=== PATIENT | female | born 1940 | race Caucasian/White ===

== ENCOUNTER 2017-01-18 19:11 | Inpatient (IN) | payer BC, SELFPAY ==
--- NOTE | ~2017-01-18 | DS ---
Discharge Summary [facility] [address] [place]. [address] NAME: JOAQUIN ALVAREZ : 36 STATUS : DIS IN PAT#: [id number] AGE: 76 ADM/REG DATE : 01/18/17 MR#: [id number] REPORT SERV DATE: 01/26/17 DICTATED BY: VIOLETA CASTILLO DATE: 01/25/17 REPORT STATUS : Draft TRANSCRIBED BY: JULIA DATE: 01/25/17 ADMISSION DATE: 01/18/2017 DISCHARGE DATE: 01/25/2017 CONSULTATION: None. PROCEDURES: None. DISCHARGE DIAGNOSES: 1. Pneumonia. 2. Dementia. 3. Hypothyroidism. 4. Hypertension. 5. Physical deconditioning. 6. Obstructive sleep apnea, on CPAP. 7. Gastroesophageal reflux disease. HISTORY OF PRESENT ILLNESS: This is a 76-year-old female with history of multiple admissions for urinary tract infection, hypertension, hypothyroidism, who presented to the emergency room with acute confusional state. In the ER, she was found to have significant WBC count of 14.7. Chest x-ray was concerning for left lower lobe pneumonia. The patient was admitted to the hospital for management of left lower lobe pneumonia. HOSPITAL COURSE: 1. Health care-associated pneumonia. Given the patient's constellation of presentation of symptoms of elevated WBC count, chest x-ray with consolidation and recent hospitalization, the patient was started on broad-spectrum IV antibiotics for HCAP. The patient's white blood cell continued to trend down. During the course of this admission, sputum culture and blood cultures yielded no growth. The patient was transitioned to p.o. antibiotics prior to discharge. The patient completed a total of ten days of antibiotics. At the time of discharge, the patient's cough, shortness of breath, and oxygenation have just turned back to baseline. The patient was advised to continue follow up with primary care physician. 2. Dementia. The patient has history of advanced dementia. The patient was pleasantly demented throughout the course of this admission. At the time of discharge, the patient was discharged back to SNF at [facility]. IMAGING: CT scan of the brain. Impression, stable generalized atrophy. DISCHARGE MEDICATIONS: 1. Folic acid 1 mg p.o. daily. 2. Levothyroxine 112 mcg p.o. daily. 3. Lisinopril 10 mg p.o. daily. 4. Namenda 10 mg p.o. b.i.d. 5. Omeprazole 40 mg p.o. daily. Discharge Summary [facility] [address] [place]. [address] NAME: JOAQUIN ALVAREZ : 38 STATUS : DIS IN PAT#: [id number] AGE: 76 ADM/REG DATE : 01/18/17 MR#: [id number] REPORT SERV DATE: 01/26/17 DICTATED BY: VIOLETA CASTILLO DATE: 01/25/17 REPORT STATUS : Draft TRANSCRIBED BY: JULIA DATE: 01/25/17 DISCHARGE ACTIVITY: As tolerated. DISCHARGE DIET: Low-salt diet. DISCHARGE DISPOSITION: To SNF at [facility]. A total of 35 minutes was used to prepare this patient's discharge, reconcile medication, and advised the patient on discharge followup. SUSIO/JULIA Violeta Castillo MD / [id number] CC: Violeta Castillo MD [facility]
--- NOTE | ~2017-01-18 | HP ---
History And Physical [facility] [address] [place]. [address] NAME: JOAQUIN ALVAREZ : 38 STATUS : ADM IN PAT#: [id number] AGE: 76 ADM/REG DATE : 01/18/17 MR#: [id number] REPORT SERV DATE: 01/19/17 DICTATED BY: ERIKA CAO DATE: 01/18/17 REPORT STATUS : Draft TRANSCRIBED BY: MODL DATE: 01/18/17 DATE OF ADMISSION: 01/18/2017 CHIEF COMPLAINT: Mental status changes, acute encephalopathy with lethargy and nausea and vomiting. HPI: The patient is a 76-year-old female with multiple admissions for urinary infection, chronic encephalopathy, hypertension, hypothyroidism, recent diarrhea accompanied by family members as the patient has had continuous mental status changes, generalized weakness that has been constant, moderate severity. No pain or radiating symptoms. Has had mild nausea, vomiting, multiple diarrhea episodes today with weakness. No worsening symptoms or no relieving symptoms, and are still currently present. The patient has had minimal urine output and decreased p.o. intake. Did have episode of being sweaty and dizziness earlier. REVIEW OF SYSTEMS: The patient does not quite respond to complete review of systems, but family members who are in healthcare field unable to provide majority of the ROS. For consultation, the patient has had weakness with dizziness. Eyes, no reported pain or visual changes. ENT has had right ear pain with dizziness. No congestion. Neuro, no headache, mild confusion. Skin, no rashes or bruising. Respiratory, no shortness of breath but does have had recurrent cough. CV, no chest pain or palpitations. GI positive for nausea, vomiting, and multiple episodes of diarrhea, but no abdominal pain. has had decreased urine output. No hematuria. Musculoskeletal, no myalgias, arthralgias above baseline. Endo, does have fatigue. No polyuria. Heme, no bleeding or bruising. Immunologic, no rhinorrhea. Psych, no anxiety but does have increased confusion. PAST MEDICAL HISTORY: Noted for chronic encephalopathy with chronic advanced dementia, recurrent urinary infections. Hypertension, GERD, hypothyroidism, BILL noncompliant with CPAP per records. SURGICAL HISTORY: Bladder tack. SOCIAL HISTORY: No smoking, alcohol, has been at rehab facility recently. FAMILY HISTORY: Noted for cancer. ALLERGIES: PENICILLIN, AZITHROMYCIN, DURICEF, DETROL. HOME MEDICATIONS: Fosamax, Norvasc, aspirin, Lipitor, vitamin D 1000 units, vitamin B 12, Aricept, Lexapro, folic acid, levothyroxine, Prinivil, melatonin, Namenda, Myrbetriq, fish oil, Prilosec, barrier cream, and Levaquin. EKG: Noted for sinus tach with occasional PVCs rate of 118 QTc 465. PHYSICAL EXAMINATION: History And Physical [address] [address] NAME: JOAQUIN ALVAREZ : 38 STATUS : ADM IN PAT#: [id number] AGE: 76 ADM/REG DATE : 01/18/17 MR#: [id number] REPORT SERV DATE: 01/19/17 DICTATED BY: ERIKA CAO DATE: 01/18/17 REPORT STATUS : Draft TRANSCRIBED BY: JULIA DATE: 01/18/17 VITAL SIGNS: The patient's blood pressure 137/64, temperature 98.8, pulse 78, respirations 20, O2 sat is 88% on room air improved to 92% on 2 L. GENERAL: Frail, but no acute distress. Lethargic, awakens and responsive to verbal stimulation. HEENT: Eyes, no scleral icterus, but pale. ENT, dry mucous membranes. Tongue midline. Does have cerumen impaction, right side greater than left. RESPIRATORY: Clear to auscultation. No dullness to percussion in the anterior and posterior lung lambert. CHEST: No increased AP diameter. CV: Mildly tachycardic with no rubs or gallops. GI: Soft, nontender, and nondistended. Bowel sounds positive. : Deferred. MUSCULOSKELETAL: Moves all extremities x4, but generalized weak due to underlying lethargy. SKIN: Warm, dry, thin skin, slight tenting. LYMPHS: No cervical or supraclavicular lymphadenopathy. HEMET: No bleeding or bruising. Neuro: Lethargic but alert to person, place, does have symmetrical strength, approximately 4/5 in upper and lower lambert. PSYCH: Tired, but appropriate mood, and calm. LABS: Brain without contrast, stable generalized atrophy. CMP; sodium 143, potassium 3.8, chloride 106, bicarb 29, BUN and creatinine 14 and 1.25, glucose 97, total protein 6.5. LFTs within normal limits with a lipase of 175. Drug screen negative. CBC; WBC count 14.8. Family reports it was up to 25 at that facility. H and H 13.2 and 39.7, platelets 221,000. ABG pH 7.39, pCO2 42, PO2 63, bicarb 24.5. Chest x-ray concerning for left lower lobe pneumonia. Official report still pending. ASSESSMENT/PLAN: 1. Left lower lobe pneumonia with health care-associated pneumonia risk factors. 2. Mzgxv-wr-cdksulj encephalopathy. 3. Hypertension. 4. Hypothyroidism. 5. Diarrhea. 6. Acute hypoxia. 7. Obstructive sleep apnea, noncompliant with CPAP. PLAN: 1. Left lower lobe pneumonia with HCAP risk factors. Has recently been on Levaquin. WBC count has gone from 25,000 to 14,000, but still having increased shortness of breath, cough, and hypoxia. We will broaden to vanc and aztreonam, based off allergies and HCAP risk factors. Cultures ordered and pending. Deescalate as tolerated. Continue monitor supportively. 2. Htjuv-or-hgxxvjl encephalopathy, treat #1. The patient has minimal urine output even with [place], unable to test if there is any active urine infection at this time. 3. Hypertension, on ERROL inhibitor. 4. Hypothyroidism, questionable compliance with replacement. 5. Diarrhea. Check C. diff with multiple bowel movements. Has recently been on History And Physical [address] [address] NAME: JOAQUIN ALVAREZ : 36 STATUS : ADM IN [facility]#: [id number] AGE: 76 ADM/REG DATE : 01/18/17 MR#: [id number] REPORT SERV DATE: 01/19/17 DICTATED BY: ERIKA CAO DATE: 01/18/17 REPORT STATUS : Draft TRANSCRIBED BY: MODKieran DATE: 01/18/17 levothyroxine. 6. Acute hypoxia, improved with O2. 7. Obstructive sleep apnea. 8. Noncompliant with CPAP history. We will need to monitor with O2 overnight. All questions answered to the patient and family. Anticipate greater than two midnight inpatient stay. ANTONN/JULIA Erika Cao MD / [id number] CC: MD Darius Shine P.A.-C
[~2017-01-18 19:11] MED LIST: ARICEPT10 PO; ASAB PO; B-12; B12100T PO; BARRIER CREAM TOP; BLINK TEARS OPH; CENTRUM PO; CHLORTABS PO; CLARIT10 PO; CRAN CONC500 MG PO; CYANO1000T PO; DESITIN TOP; DIOV160 PO; DITRO5 PO; FISH OIL1200 MG; FISH OIL1200 MG PO; FLONASE NAS; FOLIC ACID400 MC1 PO; FOLIC PO; FOSAMAX + D1 TAB; FOSAMAX70 MG PO; HALF81 PO; IMOD PO; LEVAQUIN750 MG PO; LEVOTHYROXIN125 MCG PO; LEXAPRO20 PO; LIPITOR20 PO; MACROBID PO; MELA3 PO; MELATONIN10 M2 PO; MELATONIN5 M1 PO; MULTI-VIT HP PO; MULTIVIT/MIN PO; MYRBETRIQ25 MG PO; NAMENDA10 MG PO; NAMENXR28; NATURE'S OPH; NORV25 PO; NORV5 PO; PRILOSEC40 MG PO; PRIN10 PO; PROVENTSOL INH; SYN075 PO; SYN1 PO; SYN125 PO; TESS PO; VITAMIN D1000 UNI1 PO; VITAMIN D31000 UNIT PO; Z-PAK PO; ZANTAC 150 PO; ZESTRIL10 MG PO
[2017-01-18 20:03] LABS: BE (BASE EXCESS) -0.5 MEQ/L (0 +/- 2.5); CARBOXYHEMOGLOBIN 1.2 % (0-3); HCO3 (ACTUAL BICARBONATE) 24.5 MEQ/L (23-27); HEMOBLOGIN CONTENT 13.5 G/DL (12-16); INSTRUMENT SERIAL # 8087; METHEMOGLOBIN 0.4 % (0-3); O2 CONTENT 17.3 VOL% (18-24); PCO2 (CO2 TENSION) 42 MMHG (35-45); PO2 (O2 TENSION) 63 MMHG (79-93); pH 7.39 (7.37-7.43)
[2017-01-18 20:04] LABS: ALLENS TEST Pos; DEVICE NC; OPERATOR ID 17589; SAMPLE Arterial
[2017-01-18 20:22] LABS: BASOPHILS 0.2 %; BASOPHILS ABSOLUTE 0.03 10/3/uL (0.0-0.16); EOSINOPHILS 0.1 %; EOSINOPHILS ABSOLUTE 0.01 10/3/uL (0.0-0.53); HEMOGLOBIN 13.2 g/dL (12.0-16.0); LYMPHOCYTES 2.3 %; LYMPHOCYTES ABSOLUTE 0.34 10/3/uL (0.67-4.30); MEAN CORPUS HGB CONC 33.2 g/dL (32.0-36.0); MEAN CORPUSCULAR HEMOGLOB 30.8 pg (26.0-34.0); MEAN CORPUSCULAR VOLUME 92.5 fL (80-100); MEAN PLATELET VOLUME 9.4 fL (9.2-13.0); MONOCYTES 5.6 %; MONOCYTES ABSOLUTE 0.83 10/3/uL (0.21-1.20); NEUTROPHILS 89.8 %; PLATELET COUNT 221 10/3/uL (150-400); RBC DISTRIBUTION WIDTH 12.3 % (12.0-16.0); RED CELL COUNT 4.29 10/6/uL (4.0-5.6)
[2017-01-18 20:28] LABS: ER CBC TAT 0 Hrs 12 Mins; HEMATOCRIT 39.7 % (36.0-48.0); MANUAL DIFF NO %; WHITE BLOOD CELLS 14.8 10/3/uL (4.5-10.5)
[2017-01-18 20:36] LABS: A/G RATIO 0.8 (0.7-1.9); ALBUMIN 2.9 G/DL (3.5-5.0); ALKALINE PHOSPHATASE 68 U/L (45-117); BUN (BLOOD UREA NITROGEN) 14 MG/DL (6-23); CALCIUM, SERUM 8.6 MG/DL (8.5-10.4); CHLORIDE, SERUM 106 MMOL/L (96-112); CO2 (CARBON DIOXIDE) 29 MMOL/L (24-34); CREATININE 1.25 MG/DL (0.55-1.02); GFR AFRICAN AMERICAN 48 ML/MIN (>=60); GFR NON AFRICAN AMERICAN 41 ML/MIN (>=60); GLOBULIN 3.6 G/DL (2.5-4.1); GLUCOSE, SERUM 97 MG/DL (60-99); POTASSIUM, SERUM 3.8 MMOL/L (3.5-5.3); SGOT(AST) 13 U/L (5-40); SGPT(ALT) 18 U/L (5-65); SODIUM, SERUM 143 MMOL/L (135-148); TOTAL PROTEIN 6.5 G/DL (6.0-8.5)
[2017-01-18 20:38] LABS: ACETAMINOPHEN LEVEL (TYLENOL) < 2.0 MCG/ML (10.0-20.0); ALCOHOL < 10 MG/DL (0); SALICYLATE < 1.7 MG/DL (-); TOTAL BILIRUBIN 0.7 MG/DL (0-1.2)
[2017-01-18] MEDS ORDERED: CIP5 PO (21:33)
[2017-01-19 05:15] LABS: ASCORBIC ACID (UR NOT ORDER) NEG (NEG); BILIRUBIN, URINE SMALL (NEG); KETONE, URINE NEGATIVE (NEG); LEUKOCYTE ESTERASE(NOT OR TRACE (NEG); WBC (NOT ORDERED) (RFLEX) 5 (0-5)
[2017-01-19 05:51] LABS: TROPONIN I <0.02 NG/ML (<0.05)
[2017-01-19 06:37] LABS: PROCALCITONIN 33.66 ng/mL (<0.5)
[2017-01-20 05:06] LABS: BASOPHILS 0.2 %; BASOPHILS ABSOLUTE 0.02 10/3/uL (0.0-0.16); EOSINOPHILS 0.2 %; EOSINOPHILS ABSOLUTE 0.02 10/3/uL (0.0-0.53); IMMATURE GRANULOCYTES 0.8 %; IMMATURE GRANULOCYTES ABSOLUTE 0.11 10/3/uL (0.0-0.11); LYMPHOCYTES 11.8 %; LYMPHOCYTES ABSOLUTE 1.53 10/3/uL (0.67-4.30); MEAN CORPUS HGB CONC 32.9 g/dL (32.0-36.0); MEAN CORPUSCULAR VOLUME 94.3 fL (80-100); MEAN PLATELET VOLUME 9.5 fL (9.2-13.0); MONOCYTES 7.2 %; MONOCYTES ABSOLUTE 0.93 10/3/uL (0.21-1.20); NEUTROPHILS 79.8 %; NEUTROPHILS ABSOLUTE 10.34 10/3/uL (2.02-8.40); PLATELET COUNT 183 10/3/uL (150-400); RBC DISTRIBUTION WIDTH 12.7 % (12.0-16.0)
[2017-01-20 05:07] LABS: HEMATOCRIT 28.3 % (36.0-48.0); HEMOGLOBIN 9.3 g/dL (12.0-16.0); MANUAL DIFF NO %
[2017-01-20 05:11] LABS: BUN (BLOOD UREA NITROGEN) 17 MG/DL (6-23); CALCIUM, SERUM 7.8 MG/DL (8.5-10.4); CHLORIDE, SERUM 113 MMOL/L (96-112); CO2 (CARBON DIOXIDE) 27 MMOL/L (24-34); CREATININE 0.91 MG/DL (0.55-1.02); GFR AFRICAN AMERICAN 70 ML/MIN (>=60); GFR NON AFRICAN AMERICAN 60 ML/MIN (>=60); GLUCOSE, SERUM 95 MG/DL (60-99); POTASSIUM, SERUM 3.9 MMOL/L (3.5-5.3); SGOT(AST) 11 U/L (5-40); SGPT(ALT) 10 U/L (5-65); SODIUM, SERUM 146 MMOL/L (135-148); TOTAL BILIRUBIN 0.4 MG/DL (0-1.2)
[2017-01-20 05:13] LABS: A/G RATIO 0.7 (0.7-1.9); ALKALINE PHOSPHATASE 51 U/L (45-117)
[2017-01-21 07:35] LABS: BASOPHILS 0.3 %; BASOPHILS ABSOLUTE 0.03 10/3/uL (0.0-0.16); EOSINOPHILS 0.1 %; EOSINOPHILS ABSOLUTE 0.01 10/3/uL (0.0-0.53); HEMOGLOBIN 10.6 g/dL (12.0-16.0); IMMATURE GRANULOCYTES ABSOLUTE 0.09 10/3/uL (0.0-0.11); LYMPHOCYTES 13.3 %; LYMPHOCYTES ABSOLUTE 1.16 10/3/uL (0.67-4.30); MEAN CORPUS HGB CONC 33.5 g/dL (32.0-36.0); MEAN CORPUSCULAR VOLUME 92.4 fL (80-100); MEAN PLATELET VOLUME 9.4 fL (9.2-13.0); MONOCYTES 8.7 %; MONOCYTES ABSOLUTE 0.76 10/3/uL (0.21-1.20); NEUTROPHILS 76.6 %; NEUTROPHILS ABSOLUTE 6.68 10/3/uL (2.02-8.40); PLATELET COUNT 201 10/3/uL (150-400); RBC DISTRIBUTION WIDTH 12.4 % (12.0-16.0); RED CELL COUNT 3.42 10/6/uL (4.0-5.6); WHITE BLOOD CELLS 8.7 10/3/uL (4.5-10.5)
[2017-01-21 07:43] LABS: HEMATOCRIT 31.6 % (36.0-48.0); MANUAL DIFF NO %
[2017-01-21 07:49] LABS: A/G RATIO 0.6 (0.7-1.9); ALBUMIN 2.2 G/DL (3.5-5.0); ALKALINE PHOSPHATASE 59 U/L (45-117); CALCIUM, SERUM 8.6 MG/DL (8.5-10.4); CHLORIDE, SERUM 109 MMOL/L (96-112); CO2 (CARBON DIOXIDE) 28 MMOL/L (24-34); CREATININE 0.68 MG/DL (0.55-1.02); GFR AFRICAN AMERICAN 97 ML/MIN (>=60); GFR NON AFRICAN AMERICAN 84 ML/MIN (>=60); GLOBULIN 3.5 G/DL (2.5-4.1); GLUCOSE, SERUM 79 MG/DL (60-99); POTASSIUM, SERUM 4.2 MMOL/L (3.5-5.3); SGOT(AST) 11 U/L (5-40); SGPT(ALT) 12 U/L (5-65); SODIUM, SERUM 144 MMOL/L (135-148); TOTAL BILIRUBIN 0.6 MG/DL (0-1.2); TOTAL PROTEIN 5.7 G/DL (6.0-8.5)
[2017-01-21 07:51] LABS: BUN (BLOOD UREA NITROGEN) 11 MG/DL (6-23)
[2017-01-22 07:49] LABS: BASOPHILS 0.6 %; BASOPHILS ABSOLUTE 0.06 10/3/uL (0.0-0.16); EOSINOPHILS 0.1 %; EOSINOPHILS ABSOLUTE 0.01 10/3/uL (0.0-0.53); HEMOGLOBIN 12.3 g/dL (12.0-16.0); IMMATURE GRANULOCYTES 2.1 %; LYMPHOCYTES 14.2 %; LYMPHOCYTES ABSOLUTE 1.34 10/3/uL (0.67-4.30); MEAN CORPUSCULAR HEMOGLOB 30.6 pg (26.0-34.0); MEAN PLATELET VOLUME 9.2 fL (9.2-13.0); MONOCYTES 7.3 %; MONOCYTES ABSOLUTE 0.69 10/3/uL (0.21-1.20); NEUTROPHILS 75.7 %; NEUTROPHILS ABSOLUTE 7.14 10/3/uL (2.02-8.40); PLATELET COUNT 229 10/3/uL (150-400); RED CELL COUNT 4.02 10/6/uL (4.0-5.6); WHITE BLOOD CELLS 9.4 10/3/uL (4.5-10.5)
[2017-01-22 07:50] LABS: HEMATOCRIT 36.2 % (36.0-48.0)
[2017-01-22 07:51] LABS: MANUAL DIFF NO %
[2017-01-22 08:05] LABS: A/G RATIO 0.7 (0.7-1.9); ALBUMIN 2.6 G/DL (3.5-5.0); ALKALINE PHOSPHATASE 70 U/L (45-117); BUN (BLOOD UREA NITROGEN) 8 MG/DL (6-23); CHLORIDE, SERUM 108 MMOL/L (96-112); CO2 (CARBON DIOXIDE) 27 MMOL/L (24-34); GFR AFRICAN AMERICAN 101 ML/MIN (>=60); GFR NON AFRICAN AMERICAN 87 ML/MIN (>=60); GLOBULIN 3.9 G/DL (2.5-4.1); GLUCOSE, SERUM 86 MG/DL (60-99); POTASSIUM, SERUM 3.6 MMOL/L (3.5-5.3); SGOT(AST) 19 U/L (5-40); SGPT(ALT) 12 U/L (5-65); SODIUM, SERUM 142 MMOL/L (135-148); TOTAL BILIRUBIN 0.5 MG/DL (0-1.2); TOTAL PROTEIN 6.5 G/DL (6.0-8.5)
[2017-01-23 05:03] LABS: BASOPHILS 1.1 %; BASOPHILS ABSOLUTE 0.11 10/3/uL (0.0-0.16); EOSINOPHILS 0.1 %; EOSINOPHILS ABSOLUTE 0.01 10/3/uL (0.0-0.53); HEMOGLOBIN 11.9 g/dL (12.0-16.0); IMMATURE GRANULOCYTES 2.4 %; IMMATURE GRANULOCYTES ABSOLUTE 0.25 10/3/uL (0.0-0.11); LYMPHOCYTES 14.5 %; LYMPHOCYTES ABSOLUTE 1.49 10/3/uL (0.67-4.30); MEAN CORPUSCULAR HEMOGLOB 30.4 pg (26.0-34.0); MEAN CORPUSCULAR VOLUME 89.3 fL (80-100); MEAN PLATELET VOLUME 9.4 fL (9.2-13.0); MONOCYTES 7.4 %; MONOCYTES ABSOLUTE 0.76 10/3/uL (0.21-1.20); NEUTROPHILS 74.5 %; NEUTROPHILS ABSOLUTE 7.66 10/3/uL (2.02-8.40); PLATELET COUNT 233 10/3/uL (150-400); RBC DISTRIBUTION WIDTH 12.5 % (12.0-16.0); RED CELL COUNT 3.92 10/6/uL (4.0-5.6); WHITE BLOOD CELLS 10.3 10/3/uL (4.5-10.5)
[2017-01-23 05:04] LABS: MANUAL DIFF NO %
[2017-01-23 05:20] LABS: A/G RATIO 0.6 (0.7-1.9); ALBUMIN 2.4 G/DL (3.5-5.0); ALKALINE PHOSPHATASE 62 U/L (45-117); CALCIUM, SERUM 8.8 MG/DL (8.5-10.4); CHLORIDE, SERUM 106 MMOL/L (96-112); CO2 (CARBON DIOXIDE) 27 MMOL/L (24-34); CREATININE 0.68 MG/DL (0.55-1.02); GFR AFRICAN AMERICAN 97 ML/MIN (>=60); GFR NON AFRICAN AMERICAN 84 ML/MIN (>=60); GLOBULIN 3.8 G/DL (2.5-4.1); GLUCOSE, SERUM 73 MG/DL (60-99); POTASSIUM, SERUM 4.1 MMOL/L (3.5-5.3); SGOT(AST) 20 U/L (5-40); SGPT(ALT) 17 U/L (5-65); SODIUM, SERUM 140 MMOL/L (135-148); TOTAL BILIRUBIN 0.7 MG/DL (0-1.2); TOTAL PROTEIN 6.2 G/DL (6.0-8.5); VANCOMYCIN TROUGH 15.5 MCG/ML (10.0-20.0)
[2017-01-23 05:22] LABS: BUN (BLOOD UREA NITROGEN) 12 MG/DL (6-23)
[2017-01-24 07:08] LABS: BASOPHILS 1.2 %; BASOPHILS ABSOLUTE 0.12 10/3/uL (0.0-0.16); EOSINOPHILS 0.1 %; EOSINOPHILS ABSOLUTE 0.01 10/3/uL (0.0-0.53); HEMATOCRIT 34.2 % (36.0-48.0); HEMOGLOBIN 11.5 g/dL (12.0-16.0); IMMATURE GRANULOCYTES 4.4 %; IMMATURE GRANULOCYTES ABSOLUTE 0.44 10/3/uL (0.0-0.11); LYMPHOCYTES 14.3 %; LYMPHOCYTES ABSOLUTE 1.43 10/3/uL (0.67-4.30); MANUAL DIFF NO %; MEAN CORPUS HGB CONC 33.6 g/dL (32.0-36.0); MEAN CORPUSCULAR HEMOGLOB 30.2 pg (26.0-34.0); MEAN CORPUSCULAR VOLUME 89.8 fL (80-100); MEAN PLATELET VOLUME 9.1 fL (9.2-13.0); MONOCYTES 8.2 %; MONOCYTES ABSOLUTE 0.82 10/3/uL (0.21-1.20); NEUTROPHILS 71.8 %; NEUTROPHILS ABSOLUTE 7.17 10/3/uL (2.02-8.40); PLATELET COUNT 203 10/3/uL (150-400); RBC DISTRIBUTION WIDTH 12.6 % (12.0-16.0); RED CELL COUNT 3.81 10/6/uL (4.0-5.6)
[2017-01-24 07:22] LABS: A/G RATIO 0.7 (0.7-1.9); ALBUMIN 2.5 G/DL (3.5-5.0); ALKALINE PHOSPHATASE 63 U/L (45-117); BUN (BLOOD UREA NITROGEN) 15 MG/DL (6-23); CALCIUM, SERUM 8.8 MG/DL (8.5-10.4); CHLORIDE, SERUM 106 MMOL/L (96-112); CO2 (CARBON DIOXIDE) 26 MMOL/L (24-34); CREATININE 0.85 MG/DL (0.55-1.02); GFR AFRICAN AMERICAN 76 ML/MIN (>=60); GFR NON AFRICAN AMERICAN 66 ML/MIN (>=60); GLOBULIN 3.6 G/DL (2.5-4.1); GLUCOSE, SERUM 84 MG/DL (60-99); POTASSIUM, SERUM 3.8 MMOL/L (3.5-5.3); SGOT(AST) 20 U/L (5-40); SGPT(ALT) 16 U/L (5-65); SODIUM, SERUM 142 MMOL/L (135-148); TOTAL BILIRUBIN 0.6 MG/DL (0-1.2); TOTAL PROTEIN 6.1 G/DL (6.0-8.5)
[2017-01-25 06:46] LABS: HEMATOCRIT 34.5 % (36.0-48.0); HEMOGLOBIN 11.6 g/dL (12.0-16.0); MEAN CORPUS HGB CONC 33.6 g/dL (32.0-36.0); MEAN CORPUSCULAR HEMOGLOB 30.7 pg (26.0-34.0); MEAN CORPUSCULAR VOLUME 91.3 fL (80-100); MEAN PLATELET VOLUME 9.3 fL (9.2-13.0); PLATELET COUNT 226 10/3/uL (150-400); RBC DISTRIBUTION WIDTH 12.4 % (12.0-16.0); RED CELL COUNT 3.78 10/6/uL (4.0-5.6); WHITE BLOOD CELLS 8.2 10/3/uL (4.5-10.5)
[2017-01-25 06:47] LABS: MANUAL DIFF YES %
[2017-01-25 07:01] LABS: BUN (BLOOD UREA NITROGEN) 10 MG/DL (6-23); CALCIUM, SERUM 8.6 MG/DL (8.5-10.4); CHLORIDE, SERUM 105 MMOL/L (96-112); CO2 (CARBON DIOXIDE) 28 MMOL/L (24-34); CREATININE 0.83 MG/DL (0.55-1.02); GFR AFRICAN AMERICAN 78 ML/MIN (>=60); GFR NON AFRICAN AMERICAN 68 ML/MIN (>=60); GLUCOSE, SERUM 87 MG/DL (60-99); SODIUM, SERUM 142 MMOL/L (135-148)
[2017-01-25 07:39] LABS: IMMATURE GRANS ABSOLUTE (CALC) 0.16 10/3/uL (0.0-0.11); LYMPHOCYTES 18 %; LYMPHOCYTES ABSOLUTE (CALC) 1.48 10/3/uL (0.67-4.30); METAMYELOCYTES 1 %; MONOCYTES 12 %; MONOCYTES ABSOLUTE (CALC) 0.98 10/3/uL (0.21-1.20); MYELOCYTES 1 %; NEUTROPHILS ABSOLUTE (CALC) 5.58 10/3/uL (2.02-8.40); PLATELET ESTIMATE ADQ (ADEQUATE); RBC MORPHOLOGY NORM (NORMAL); SEGMENTED NEUTROPHIL (0) 68 %; TOTAL NUCLEATED CELLS 100
[2017-08-17] MEDS ORDERED: VITC500 PO (20:13)
[2017-08-17] MEDS ORDERED: OCUVITE PO (20:13)
[2017-08-17] MEDS ORDERED: MAXIMUM D3 PO (20:14)
[2017-08-17] MEDS ORDERED: SINGULAIR1 PO (20:15)
== END 2017-01-25 15:50 | DRG 193 ==
LOC: ER 19:11 → 2SO 23:03
PROVIDERS: Hospitalist; Student in an Organized Health Care Education/Training Program
DX: J18.1 Lobar pneumonia, unspecified organism (principal); G93.40 Encephalopathy, unspecified; N17.9 Acute kidney failure, unspecified; I10 Essential (primary) hypertension; E03.9 Hypothyroidism, unspecified; K21.9 Gastro-esophageal reflux disease without esophagitis; G47.33 Obstructive sleep apnea (adult) (pediatric); R19.7 Diarrhea, unspecified; F03.90 Unspecified dementia, unspecified severity, without behavioral disturbance, psychotic disturbance, mood disturbance, and anxiety; E83.42 Hypomagnesemia; I49.3 Ventricular premature depolarization; R09.02 Hypoxemia; R00.0 Tachycardia, unspecified; Z99.81 Dependence on supplemental oxygen; Z91.19 Patient's noncompliance with other medical treatment and regimen; Z88.0 Allergy status to penicillin; Z88.1 Allergy status to other antibiotic agents; Z88.8 Allergy status to other drugs, medicaments and biological substances; Z98.890 Other specified postprocedural states
CPT/HCPCS: 36600; 70450; 71010; 80048; 80053; 80202; 80305; 80307; 81001; 82140; 82805; 83690; 83735; 84145; 84443; 84484; 85025; 87040; 87449; 87493; 87493-59; 93005; 94640; 96374; 97162-GP; 99285; A9270-GY; J0456; J1956; J3370